=== PATIENT | male | born 1990 | race African-American/Black ===

== ENCOUNTER 2019-12-09 01:11 | Emergency (ER) | payer OTHER ==
[~2019-12-09] VITALS: Ht 177.8 cm; Wt 85.0 kg
[2019-12-09] MEDS ORDERED: LORAZEPAM 2MG/ML CPJ IM STA ×2 (01:31→04:10)
[2019-12-09] MEDS ORDERED: HALOPERIDOL LACTATE 5MG/ML VIAL IM STA (01:31)
[2019-12-09] MEDS ORDERED: OLANZAPINE 10 MG/VIAL IM STA (02:04)
[2019-12-09] MEDS ORDERED: LIDOCAINE 1%/EPI 1:100,000 10 ML VIAL IJ ONE (03:30)
[2019-12-09] MEDS ORDERED: BACITRACIN ZINC OINT UDPKT TOP ONE (03:30)
[2019-12-09] MEDS ORDERED: LIDOCAINE HCL/EPINEPHRINE 1%-EPI 1:100,000 20 ML VIAL INFIL SCH (03:45)
[2019-12-09 06:45] VITALS: BP 127/62
== END 2019-12-09 07:27 | disposition home or self-care (01) ==
LOC: ER 01:11
DX: S01.81XA Laceration without foreign body of other part of head, initial encounter (principal); W22.8XXA Striking against or struck by other objects, initial encounter; Y93.89 Activity, other specified; Y92.89 Other specified places as the place of occurrence of the external cause; Y99.8 Other external cause status; M25.511 Pain in right shoulder; Z98.890 Other specified postprocedural states; R45.6 Violent behavior
CPT/HCPCS: 12013; 70450; 73030; 96372; 99285; J1630; J2060; J3490